=== PATIENT | male | born 1980 | race Caucasian/White ===

== ENCOUNTER 2017-06-26 11:49 | Emergency (ER) | payer BC ==
--- NOTE | 2017-06-26 12:26 | EDM.PDOC ---
ED HPI GENERAL MEDICAL PROBLEM - General Chief Complaint: General Stated Complaint: HEMORRHOID Time Seen by Provider: 06/26/17 12:10 Source of Information: Reports: Patient History Limitations: Reports: No Limitations - History of Present Illness INITIAL COMMENTS - FREE TEXT/NARRATIVE: 37 YO WM presents to ER complaining of bleeding hemorrhoid which began today. Pt reports long standing history of hemorrhoids but with minimal bleeding. Pt reports today he noticed with each stool, bleeding and became concerned prompting ER evaluation. Pt states he hasn't noticed any blood in his stool, only with wiping. Pt denies any dizziness/lightheadedness, chest pain or shortness of breath/exercise intolerance. Onset: Today Quality: Reports: Ache Severity: Mild Improves with: Reports: None Worsens with: Reports: None Associated Symptoms: Reports: No Other Symptoms - Related Data Allergies Allergy/AdvReac Type Severity Reaction Status Date / Time No Known Drug Allergies Allergy Other Verified 06/26/17 12:12 Home Meds: Home Meds Hydrocortisone [Proctozone-HC 2.5% Crm] 30 gm TOP Q4H PRN #30 tube 06/26/17 [Rx] Social & Family History - Tobacco Use Smoking Status *Q: Never Smoker Second Hand Smoke Exposure: No - Caffeine Use Caffeine Use: Reports: Coffee, Soda - Recreational Drug Use Recreational Drug Use: No ED ROS GENERAL - Review of Systems Review Of Systems: See Below Constitutional: Reports: No Symptoms HEENT: Reports: No Symptoms Respiratory: Reports: No Symptoms Cardiovascular: Reports: No Symptoms Endocrine: Reports: No Symptoms GI/Abdominal: Reports: Hematochezia. Denies: Abdominal Pain, Black Stool, Bloody Stool, Diarrhea, Hematemesis, Melena, Nausea, Stool Incontinence, Vomiting : Reports: No Symptoms Musculoskeletal: Reports: No Symptoms Skin: Reports: No Symptoms Neurological: Reports: No Symptoms Psychiatric: Reports: No Symptoms Hematologic/Lymphatic: Reports: No Symptoms Immunologic: Reports: No Symptoms ED EXAM, GENERAL - Physical Exam Exam: See Below Exam Limited By: No Limitations General Appearance: Alert, WD/WN, No Apparent Distress Nose: Normal Inspection, Normal Mucosa, No Blood Throat/Mouth: Normal Inspection, Normal Lips, Normal Teeth, Normal Gums, Normal Oropharynx, Normal Voice, No Airway Compromise Head: Atraumatic, Normocephalic Neck: Normal Inspection, Supple, Non-Tender, Full Range of Motion Respiratory/Chest: No Respiratory Distress, Lungs Clear, Normal Breath Sounds, No Accessory Muscle Use, Chest Non-Tender Cardiovascular: Normal Peripheral Pulses, Regular Rate, Rhythm, No Edema, No Gallop, No JVD, No Murmur, No Rub GI/Abdominal: Normal Bowel Sounds, Soft, Non-Tender, No Organomegaly, No Distention, No Abnormal Bruit, No Mass Rectal (Males) Exam: Normal Exam, Normal Rectal Tone, Prostate Normal, Hemorrhoids. No: Black Stool, Rectal Fissure, Tenderness Back Exam: Normal Inspection, Full Range of Motion, NT Extremities: Normal Inspection, Normal Range of Motion, Non-Tender, Normal Capillary Refill, No Pedal Edema Neurological: Alert, Oriented, CN II-XII Intact, Normal Cognition, Normal Gait, Normal Reflexes, No Motor/Sensory Deficits Psychiatric: Normal Affect, Normal Mood Skin Exam: Warm, Dry, Intact, Normal Color, No Rash Lymphatic: No Adenopathy Course - Vital Signs Last Recorded V/S: Last Vital Signs Temp 37.1 C 06/26/17 12:08 Pulse 88 06/26/17 12:08 Resp 20 06/26/17 12:08 BP 124/67 06/26/17 12:08 Pulse Ox 97 06/26/17 12:08 Departure - Departure Time of Disposition: 12:33 Disposition: Home, Self-Care 01 Condition: Good Clinical Impression: Hemorrhoids Qualifiers: Hemorrhoid type: other Qualified Code(s): K64.8 - Other hemorrhoids - Discharge Information Prescriptions: Hydrocortisone [Proctozone-HC 2.5% Crm] 30 gm TOP Q4H PRN #30 tube PRN Reason: Pain [place] [Primary Care Provider] - - Assessment/Plan Assessment:: 1. bleeding hemorrhoid Plan: 1. sitz baths 2. hydrocortisone 2.5% cream [place] 3. avoid sitting 4. colace 100mg PO BID 5. follow up in clinic for further evaluation and treatment
== END 2017-06-26 12:40 | disposition home or self-care (01) ==
LOC: KA.ED 11:49
DX: K64.8 Other hemorrhoids (principal)
CPT/HCPCS: 99282